=== PATIENT | male | born 1945 | race Caucasian/White ===

== ENCOUNTER 2021-08-05 11:23 | Inpatient (IN) | payer MEDICARE, OTHER ==
[~2021-08-05] VITALS: Ht 170.2 cm; Wt 115.2 kg
[~2021-08-05 11:23] MED LIST: AMLO5TAB66 PO; ASPI-1450 PO; ATOR40TA28 PO; CALC0.253 PO; CARV3.1231 PO; CLOP75TA32 PO; FINA5TAB41 PO; FURO20TA4 PO; GABA600T10 PO; GLIP5 PO; HYDR-3421 PO; ICOS1CAP PO; INSU3INS3 SQ; NORT75CA PO; OMEP40CA21 PO; RANO500T3 PO; RISP0.5T39 PO; SACU1TAB PO; SERT-440 PO; SITA50 PO; SODI650T33 PO; TAMS-13 PO
[2021-08-05] MEDS ORDERED: ASPIRIN 81 MG CHEWABLE TABLET PO ONE (11:30)
[2021-08-05] MEDS ORDERED: DIAZEPAM 5 MG TABLET PO ONE (11:30)
[2021-08-05] MEDS ORDERED: SODIUM CHLORIDE 0.9% 1,000 ML IV ONE (11:30)
[2021-08-05] MEDS ORDERED: DiphenhydrAMINE HCL 50 MG CAPSULE PO ONE (11:30)
[2021-08-05] MEDS ORDERED: SODIUM CHLORIDE 0.9% 1,000 ML ONE (12:29)
[2021-08-05] MEDS ORDERED: DIAZEPAM 5 MG TABLET ONE (12:29)
[2021-08-05] MEDS ORDERED: ASPIRIN 81 MG CHEWABLE TABLET ONE (12:30)
[2021-08-05] MEDS ORDERED: DiphenhydrAMINE HCL 50 MG CAPSULE ONE (12:30)
[2021-08-05 13:26] LABS: GLUCOMETER DEV NAME(LOC) SDS.; GLUCOSE,POINT OF CARE 119 MG/DL (70-110)
[2021-08-05] MEDS ORDERED: IOHEXOL 300 MG/ML 100 ML VIAL ONE ×2 (16:45→17:36)
[2021-08-05] MEDS ORDERED: SODIUM BICARBONATE 50 MEQ/50 ML VIAL ONE (16:45)
[2021-08-05] MEDS ORDERED: HEPARIN SODIUM 1000 UNITS/NS 1,000 ML ONE (16:45)
[2021-08-05] MEDS ORDERED: LIDOCAINE/PF 1% 30 ML VIAL ONE (16:45)
[2021-08-05] MEDS ORDERED: IOHEXOL 300 MG/ML 50 ML VIAL ONE (16:45)
[2021-08-05] MEDS ORDERED: IOHEXOL 300 MG/ML 150 ML VIAL ONE (16:45)
[2021-08-05 17:06] VITALS: BP 125/67
[2021-08-05] MEDS ORDERED: FentaNYL CITRATE PF 100 MCG/2 ML VIAL ONE ×2 (17:07→18:01)
[2021-08-05] MEDS ORDERED: MIDAZOLAM HCL 2 MG/2 ML VIAL ONE ×2 (17:08→18:07)
[2021-08-05] MEDS ORDERED: IOHEXOL 300 MG/ML 150 ML VIAL IARTER ONE (17:15)
[2021-08-05] MEDS ORDERED: FentaNYL CITRATE PF 100 MCG/2 ML VIAL IVP ONE ×3 (17:15→18:15)
[2021-08-05] MEDS ORDERED: LIDOCAINE 1% 30 ML/SOD BICARB 8.4% 4 ML SQ ONE (17:15)
[2021-08-05] MEDS ORDERED: HEPARIN SODIUM 1000 UNITS/NS 1,000 ML IARTER ONE (17:15)
[2021-08-05] MEDS ORDERED: SODIUM CHLORIDE 0.9% 250 ML IV ONE (17:15)
[2021-08-05] MEDS ORDERED: MIDAZOLAM HCL 2 MG/2 ML VIAL IVP ONE ×2 (17:15)
[2021-08-05] MEDS ORDERED: HEPARIN SODIUM,PORCINE 5,000 UNITS/ML VIAL IVP ONE (17:45)
[2021-08-05] MEDS ORDERED: TICAGRELOR 90 MG TABLET ONE (17:54)
[2021-08-05] MEDS ORDERED: TICAGRELOR 90 MG TABLET PO ONE (18:15)
[2021-08-05 18:26] VITALS: BP 144/70
[2021-08-05] MEDS: NITROGLYCERIN 2% (1 GM=INCH) PACKET TP SCH ×2 (18:30→23:35)
[2021-08-05] MEDS ORDERED: DEXTROSE 50%-WATER 25 GM/50 ML SYRINGE IVP PRN ×2 (18:45→21:15)
[2021-08-05] MEDS ORDERED: INSULIN LISPRO 100 UNITS/ML SQ PRN (18:45)
[2021-08-05] MEDS ORDERED: ACETAMINOPHEN/CODEINE 300-30 MG TABLET PO PRN (18:45)
[2021-08-05] MEDS ORDERED: ACETAMINOPHEN 325 MG TABLET PO PRN (18:45)
[2021-08-05] MEDS ORDERED: NITROGLYCERIN 0.4 MG SUBLINGUAL TABLET #25 SL PRN (18:45)
[2021-08-05] MEDS ORDERED: NITROGLYCERIN 2% (1 GM=INCH) PACKET TP ONE (18:47)
[2021-08-05 20:25] VITALS: BP 131/76
[2021-08-05] MEDS ORDERED: ATORVASTATIN CALCIUM 40 MG TABLET PO SCH (21:00)
[2021-08-05 21:06] LABS: GLUCOMETER DEV NAME(LOC) 5N.1C; GLUCOSE,POINT OF CARE 164 MG/DL (70-110)
[2021-08-05] MEDS ORDERED: INSULIN GLARGINE,HUM.REC.ANLOG 100 UNITS/ML SQ SCH (21:15)
[2021-08-05 22:50] LABS: BASOPHILS % (AUTO) 0.5 % (0.0-2.0); EOSINOPHILS % (AUTO) 0.2 % (1.0-6.0); HEMATOCRIT 30.9 % (41-53); HEMOGLOBIN 10.1 g/dL (13.5-17.5); LYMPHOCYTES # (AUTO) 1.4 K/uL (1.0-4.8); LYMPHOCYTES % (AUTO) 18.5 % (22.0-44.0); MEAN CORPUSCULAR HEMOGLOBIN 27.2 pg (26.0-34.0); MEAN CORPUSCULAR HGB CONC 32.9 G/dL (31.0-37.0); MEAN CORPUSCULAR VOLUME 83 fL (80-100); MONOCYTES # (AUTO) 0.6 K/uL (0.1-1.0); MONOCYTES % (AUTO) 8.8 % (2.0-9.0); NEUTROPHILS # (AUTO) 5.3 K/uL (1.8-7.7); PLATELET COUNT (AUTO) 164 K/uL (150-450); RED BLOOD CELL COUNT(AUTO) 3.73 MIL/uL (4.50-5.90); RED CELL DISTRIBUTION WIDTH 15.1 % (11.5-14.5)
[2021-08-05 23:00] LABS: CALCIUM, TOTAL 8.3 mg/dL (8.8-10.5); CREATININE 1.26 mg/dL (0.60-1.30)
[2021-08-05 23:06] LABS: ALBUMIN 2.7 g/dL (3.4-5.0); BILIRUBIN,TOTAL 0.3 mg/dL (0.1-1.0); TOTAL PROTEIN, SERUM 6.4 g/dL (6.4-8.2)
[2021-08-05 23:32] VITALS: BP 127/64
[2021-08-05] MEDS: CARVEDILOL 12.5 MG TABLET PO SCH (23:34)
[2021-08-05] MEDS: TICAGRELOR 90 MG TABLET PO SCH (23:34)
[2021-08-05] MEDS: SACUBITRIL/VALSARTAN 24-26 MG TABLET PO SCH (23:35)
[2021-08-05] MEDS: INSULIN LISPRO 100 UNITS/ML SQ PRN (23:39)
[2021-08-06 03:26] VITALS: BP 141/71
[2021-08-06] MEDS: NITROGLYCERIN 2% (1 GM=INCH) PACKET TP SCH ×2 (06:00→12:03)
[2021-08-06 06:39] VITALS: BP 96/51
[2021-08-06 07:52] VITALS: BP 112/62
[2021-08-06] MEDS ORDERED: ASPIRIN 81 MG CHEWABLE TABLET PO SCH (08:00)
[2021-08-06 08:31] LABS: GLUCOMETER DEV NAME(LOC) 5N.1C; GLUCOSE,POINT OF CARE 111 MG/DL (70-110)
[2021-08-06] MEDS: TICAGRELOR 90 MG TABLET PO SCH (08:41)
[2021-08-06] MEDS ORDERED: PANTOPRAZOLE SODIUM 40 MG DR TABLET PO SCH (09:00)
[2021-08-06] MEDS ORDERED: FINASTERIDE 5 MG TABLET PO SCH (09:00)
[2021-08-06] MEDS ORDERED: FUROSEMIDE 20 MG TABLET PO SCH (09:00)
[2021-08-06] MEDS ORDERED: SODIUM BICARBONATE 650 MG TABLET PO SCH (09:00)
[2021-08-06] MEDS: SACUBITRIL/VALSARTAN 24-26 MG TABLET PO SCH (09:00)
[2021-08-06] MEDS ORDERED: AmLODIPine BESYLATE 5 MG TABLET PO SCH (09:00)
[2021-08-06] MEDS ORDERED: [UNRECOGNIZED DRUG - OTHER] PO SCH (09:00)
[2021-08-06] MEDS ORDERED: TAMSULOSIN HCL 0.4 MG CAPSULE PO SCH (09:00)
[2021-08-06] MEDS: CARVEDILOL 12.5 MG TABLET PO SCH ×2 (09:00→12:04)
[2021-08-06 11:53] VITALS: BP 140/81
[2021-08-06] MEDS: INSULIN LISPRO 100 UNITS/ML SQ PRN (12:21)
[2021-08-06] MEDS ORDERED: TICA90TA PO (13:16)
[2021-08-06] MEDS ORDERED: ASPI-1450 PO (13:16)
[2021-08-06] MEDS ORDERED: ATOR40TA28 PO (13:16)
[2021-08-06] MEDS ORDERED: ICOS0.5C PO (13:16)
[2021-08-06 21:57] LABS: GLUCOMETER DEV NAME(LOC) 5N.1C; GLUCOSE,POINT OF CARE 186 MG/DL (70-110)
== END 2021-08-06 15:25 | disposition home or self-care (01) | DRG 246 ==
LOC: CATHLAB 11:23 → 5S 20:30
PROVIDERS: ADMIT Internal Medicine; ATTEND Internal Medicine Interventional Cardiology
PROC: B2111ZZ Fluoroscopy of Multiple Coronary Arteries using Low Osmolar Contrast (ICD-10-PCS; principal; 2021-08-05)
PROC: 027035Z Dilation of Coronary Artery, One Artery with Two Drug-eluting Intraluminal Devices, Percutaneous Approach (ICD-10-PCS; 2021-08-05)
PROC: 4A023N7 Measurement of Cardiac Sampling and Pressure, Left Heart, Percutaneous Approach (ICD-10-PCS; 2021-08-05)
PROC: B2151ZZ Fluoroscopy of Left Heart using Low Osmolar Contrast (ICD-10-PCS; 2021-08-05)
PROC: B240ZZ3 Ultrasonography of Single Coronary Artery, Intravascular (ICD-10-PCS; 2021-08-05)
DX: I11.0 Hypertensive heart disease with heart failure (principal); I50.21 Acute systolic (congestive) heart failure; I25.10 Atherosclerotic heart disease of native coronary artery without angina pectoris; I50.22 Chronic systolic (congestive) heart failure; R07.9 Chest pain, unspecified; E66.01 Morbid (severe) obesity due to excess calories; E11.9 Type 2 diabetes mellitus without complications; E66.9 Obesity, unspecified; E78.5 Hyperlipidemia, unspecified; Z20.822 Contact with and (suspected) exposure to COVID-19; Z68.38 Body mass index [BMI] 38.0-38.9, adult; Z79.02 Long term (current) use of antithrombotics/antiplatelets; Z79.899 Other long term (current) drug therapy; Z95.1 Presence of aortocoronary bypass graft
CPT/HCPCS: 75960; 80053; 82962; 85025; 92920; 92928; J1644; J1815; J2250; J3010; J3490; J7030; Q9967; 36415-L1; 36415-TC